=== PATIENT | female | born 1965 | race Caucasian/White ===

== ENCOUNTER 2023-08-20 12:01 | Outpatient (CLI) | payer BC, SELFPAY ==
--- NOTE | 2023-08-20 12:09 | MM_ITS ---
WS: [id number] BILATERAL 3D TOMOSYNTHESIS DIGITAL DIAGNOSTIC MAMMOGRAPHY WITH CAD CLINICAL INFORMATION: HX OF BREAST CA HISTORY: LEFT lumpectomy with radiation therapy COMPARISON: 12/21/2021 TECHNIQUE: Bilateral CC, MLO, and ML views. FINDINGS: The breasts are composed of heterogeneous fibroglandular density, which can limit the detection of sm all underlying mass lesions. Postoperative changes lumpectomy upper inner LEFT breast with parenchyma l fibrosis. This is similar in appearance compared to previous. Skin thickening LEFT breast compatibl e with treatment related changes. RIGHT breast is unchanged and unremarkable. No suspicious focal mass, asymmetry, calcifications, or architectural distortion. No evidence of sergio gnancy. IMPRESSION: MM/[place] [id number] BI-RADS: 2-Benign FOLLOW UP: 1 Year Follow-up Recommend return to annual diagnostic mammography.
== END 2023-08-20 12:02 | disposition home or self-care (01) ==
LOC: RAD 12:05
PROVIDERS: Visit Provider Internal Medicine
DX: Z85.3 Personal history of malignant neoplasm of breast (principal)
CPT/HCPCS: 77062; G0279